=== PATIENT | female | born 2000 | race Caucasian/White ===

== ENCOUNTER 2021-10-20 15:32 | Emergency (ER) | payer OTHER ==
--- NOTE | 2021-10-20 15:58 | NUR ---
CALLED TO TRIAGE, NO ANSWER IN LOBBY OR OUTSIDE
--- NOTE | 2021-10-20 16:39 | NUR ---
PATIENT LEFT WITHOUT BEING SEEN BY DR. PHILLIPS. NO FURTHER CARE PROVIDED FOR PATIENT.
--- NOTE | 2021-10-20 16:39 | NUR ---
CALLED TO TRIAGE X3, NO ANSWER IN LOBBY OR OUTSIDE
== END 2021-10-20 16:39 | disposition left against medical advice (07) ==
LOC: MED 15:32
DX: R53.1 Weakness (principal); Z53.21 Procedure and treatment not carried out due to patient leaving prior to being seen by health care provider

== ENCOUNTER 2022-11-20 11:24 | Emergency (ER) | payer OTHER ==
[~2022-11-20] VITALS: Ht 162.6 cm; Wt 90.7 kg
--- NOTE | 2022-11-20 11:32 | NUR ---
AMB. TO BED 9, NO DISTRESS
[2022-11-20 11:34] VITALS: BP 130/74
--- NOTE | 2022-11-20 11:40 | NUR ---
PT C/O HIVES, RASH, REDNESS, SWELLING ALL OVER BODY SINCE LAST NIGHT, TAKING ANTIBIOTICS AUGMENTIN X 1 WK. NAD.
[2022-11-20] MEDS ORDERED: diphenhydrAMINE 50 MG CAP PO ONE (12:00)
[2022-11-20] MEDS ORDERED: FAMOTIDINE 20 MG TAB PO ONE (12:00)
[2022-11-20] MEDS ORDERED: FAMO-92 PO (12:06)
[2022-11-20 12:50] VITALS: BP 106/62
--- NOTE | 2022-11-20 12:53 | NUR ---
The patient's care was reviewed and supervised by ED Agency Nurse 8, RN, RN.
== END 2022-11-20 12:51 | disposition home or self-care (01) ==
LOC: MED 11:24
DX: B05.9 Measles without complication (principal); B27.90 Infectious mononucleosis, unspecified without complication; R21 Rash and other nonspecific skin eruption; R05.9 Cough, unspecified; Z79.899 Other long term (current) drug therapy
CPT/HCPCS: 99283; Q0163

== ENCOUNTER 2023-06-18 11:30 | Emergency (ER) | payer OTHER ==
[~2023-06-18] VITALS: Ht 157.5 cm; Wt 72.6 kg
[~2023-06-18 11:30] MED LIST: FAMO-92 PO
[2023-06-18 11:46] VITALS: BP 100/63; PULSE 84; RESP 18; TEMP 98; O2SAT 98
[2023-06-18 12:47] LABS: APPEARANCE,URINE CLEAR (CLEAR); BILIRUBIN,URINE NEGATIVE (NEGATIVE); COLOR,URINE YELLOW (YELLOW); LEUKOCYTE ESTERASE ,URINE TRACE (NEGATIVE); NITRITE, URINE NEGATIVE (NEGATIVE); PROTEIN,URINE NEGATIVE (NEGATIVE); UGLUCOSE NEGATIVE (NEGATIVE); UROBILINOGEN,URINE 0.2 EU/dL (0.2 - 1)
[2023-06-18 12:57] LABS: BACTERIA,URINE OCCASSIONAL /HPF (None Seen); SQUAMOUS EPITHELIAL CELL,UR 0-3 (FEW) /LPF (0-3 (FEW)); WBC,URINE 0-5 /HPF (0-5)
[2023-06-18 12:58] LABS: BLOOD, URINE 1+ (NEGATIVE); RBC,URINE 0-5 /HPF (0-5)
[2023-06-18] MEDS ORDERED: CEPH-588 PO (13:21)
[2023-06-18] MEDS ORDERED: PYR100 PO (13:21)
[2023-06-18 13:30] VITALS: BP 100/63; PULSE 84; RESP 18; TEMP 98; O2SAT 98
== END 2023-06-18 13:32 | disposition home or self-care (01) ==
LOC: MED 11:30
DX: N39.0 Urinary tract infection, site not specified (principal); Z79.899 Other long term (current) drug therapy; Z79.2 Long term (current) use of antibiotics
CPT/HCPCS: 81001; 81025; 87491; 99283